=== PATIENT | female | born 1945 | race Caucasian/White ===

== ENCOUNTER 2016-08-22 12:40 | Inpatient (IN) | payer MEDICARE ==
--- NOTE | ~2016-08-22 | PREOPHP ---
PreOp History and Physical [address] [place]. [address] NAME: NICK STANLEY : 43 STATUS : DIS IN PAT#: [id number] AGE: 70 ADM/REG DATE : 08/22/16 MR#: [id number] REPORT SERV DATE: 09/13/16 DICTATED BY: ROSMERY BOB DATE: 09/13/16 REPORT STATUS : Draft TRANSCRIBED BY: MODL DATE: 09/13/16 CHIEF COMPLAINT: Right ureteral tumor. HISTORY OF PRESENT ILLNESS: Mrs. 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 This is due to right ureteral tumor on CT scan. The CT scan obtained due to hematuria. She has been counseled regarding her options. She is here for right-sided nephro-ureterectomy with paracaval lymph node dissection and intravesical instillation of mitomycin-C. PAST MEDICAL HISTORY: Ureteral tumor, hematuria, hypertension, hypercholesteremia, diabetes, and cataracts. PAST SURGICAL HISTORY: Appendectomy and cholecystectomy. FAMILY HISTORY: No genitourinary cancer. SOCIAL HISTORY: She does not smoke, drink, or use illegal drugs. ALLERGIES: TETRACYCLINE, PENICILLIN, AND SULFA. MEDICATIONS: Reviewed and on the chart. REVIEW OF SYSTEMS: A 12-point review of systems was performed. Pertinent positives listed in the HPI. PHYSICAL EXAMINATION: VITAL SIGNS: She is afebrile. Her vital signs are stable. GENERAL: She is in no acute distress. She appears her stated age. HEENT: Her head is normocephalic and atraumatic. LUNGS: Her breathing is nonlabored. She is not in respiratory distress. Pulse is regular in rate and rhythm. ABDOMEN: Soft, nontender, and nondistended. EXTREMITIES: There is no cyanosis or edema. NEUROLOGIC: She is alert and oriented x3. : Normal external genitalia. IMAGING: No new imaging. LABORATORY DATA: No new labs. ASSESSMENT: Malignant right ureteral tumor. PLAN: Surgery as detailed above. Risks and benefits were explained in detail. JKM/MODL PreOp History and Physical [address] [place]. [address] NAME: NICK STANLEY : 43 STATUS : DIS IN PAT#: [id number] AGE: 70 ADM/REG DATE : 08/22/16 MR#: [id number] REPORT SERV DATE: 09/13/16 DICTATED BY: ROSMERY BOB DATE: 09/13/16 REPORT STATUS : Draft TRANSCRIBED BY: GARY DATE: 09/13/16 Rosmery Bob MD / [id number] CC: MD Michael Banegas DO
--- NOTE | ~2016-08-22 | OP ---
Record Of Operation [facility] [address] [place]. [address] NAME: NICK STANLEY : 43 STATUS : ADM IN PAT#: [id number] AGE: 70 ADM/REG DATE : 08/22/16 MR#: [id number] REPORT SERV DATE: 08/23/16 DICTATED BY: ROSMERY BOB DATE: 08/23/16 REPORT STATUS : Draft TRANSCRIBED BY: MODL DATE: 08/23/16 DATE OF PROCEDURE: 08/22/2016 TITLE OF OPERATION: 1. Cystourethroscopy. 2. Instillation of intravesical mitomycin. 3. Right robotic nephroureterectomy. 4. Laparoscopic lysis of adhesions. 5. Paracaval retroperitoneal lymph node dissection. PREOPERATIVE DIAGNOSIS: Ureteral tumor. POSTOPERATIVE DIAGNOSIS: Ureteral tumor. INDICATIONS: Ms. Stanley is a 70-year-old female, with an incidentally found 4 cm right ureteral tumor with significant hydronephrosis. She is here for the above-mentioned procedures. ANESTHESIA: General. COMPLICATIONS: None. IMPLANTS: 16-Finnish Ruffin catheter. SPECIMEN: 1. Right kidney and ureter. 2. Paracaval lymph nodes. NARRATIVE: The patient was brought to the operating room, identified by her wristband. General anesthesia was induced and Ancef was given for preoperative antibiotics. She was initially placed in a frog-leg position and prepped and draped. A flexible cystoscope was placed into her urethra and into her bladder. The bladder was inspected. It was normal. There were no tumors. The scope was removed. A 16-Finnish Ruffin catheter was placed in standard fashion. The balloon was inflated with 10 mL of sterile water. 40 mg of mitomycin C in 40 mL of sterile water was slowly instilled into her catheter and the catheter was capped. The patient was then placed in the modified right flank position and secured to the bed with pads and tape. Her abdomen was insufflated to pressure of 15 mmHg using a Veress needle. A standard Xi port placement was performed with four 8 mm ports in the right side of the body in the midclavicular line. A 12 mm port was placed in the infraumbilical region and a 5 mm port was placed in the sub xiphoid position for a liver retractor. The abdomen was inspected. There was significant omental and large bowel adhesions given her prior cholecystectomy. Using a grasper and Endoshears, this was meticulously lysed off the anterior abdominal wall. This took about an hour to do. Once I had the adequate working space, the robot was docked. The final adhesions were taken down. Hemostasis was obtained. The adhesions between the liver and the kidney were sharply divided. The adhesions between the large bowel and the liver were sharply divided. Finally, the right colon was dropped Record Of Operation [facility] [id number] [facility] [place]. [address] NAME: NICK STANLEY : 43 STATUS : ADM IN PAT#: [id number] AGE: 70 ADM/REG DATE : 08/22/16 MR#: [id number] REPORT SERV DATE: 08/23/16 DICTATED BY: ROSMERY BOB DATE: 08/23/16 REPORT STATUS : Draft TRANSCRIBED BY: MODL DATE: 08/23/16 off the retroperitoneum along the white line of Toldt. This exposed the kidney. The colon was dropped medially to expose the duodenum, the duodenum was sharply Kocherized. The kidney was then observed. I then dissected the ureter out below the area of concern. The ureter was clipped. This was done to prevent further seeding of cancer cells. Next, I got beneath the kidney to expose the psoas muscle. All fibrofatty tissue above the vena cava was left on the specimen. Next, fibrofatty tissue overlying the renal hilum was divided. There was single renal artery and single renal vein. These were taken with separate 45 mm endo vascular staple loads. The adrenal gland was spared. The kidney was then freed from all attachments with electrocautery. The ureter was then dissected down into the pelvis robotically. The ureter was retracted cephalad until it was dissected into the bladder. Once, the bladder was clearly coming into view a 3-0 V-Loc suture was placed into the bladder. The ureter was then transected and removed. The cystotomy was closed with a 3-0 V Loc suture in a running fashion. The peritoneum was reapproximated over the bladder to extra-peritonealize this resection. The kidney and ureter were then placed into an EndoCatch bag. Next, fibrofatty tissue lateral and beneath the vena cava were taken with clips and cautery. Care was taken not to injure the vena cava or other venous structures. Sympathetic nerves were left undamaged. This dissection was carried from the bifurcation of the vena cava up to the renal hilum. It is not suspicious for cancer on gross examination. There was no ongoing bleeding. The abdomen was desufflated. A Surgiflo dressing was placed over the vena cava to help prevent chylous leak. The robot was undocked. A #10 round STEPHANIE drain was placed to the inferior most robotic port. The ports were removed sequentially. The supraumbilical incision was enlarged at the skin and fascia level. The kidney, lymph nodes, and the ureter were removed and sent to pathology for analysis. The fascia was closed with 0 Monocryl suture in a [id number] fashion. The subcutaneous tissues were closed with a 3-0 Vicryl suture in interrupted fashion. The skin was closed with 4-0 Monocryl suture in subcuticular fashion. A Dermabond dressing was placed. The TAP block was placed preoperatively. The patient was awoken from anesthesia and transferred to the recovery room in stable condition. There were no complications. NIKHIL/GARY Rosmery Bob MD / [id number] CC: Rosmery Bob MD
--- NOTE | ~2016-08-22 | DS ---
Discharge Summary [facility] [address] [place]. [address] NAME: NICK STANLEY : 43 STATUS : DIS IN PAT#: [id number] AGE: 70 ADM/REG DATE : 08/22/16 MR#: [id number] REPORT SERV DATE: 09/13/16 DICTATED BY: ROSMERY BOB DATE: 09/13/16 REPORT STATUS : Draft TRANSCRIBED BY: GARY DATE: 09/13/16 ADMISSION DATE: 08/22/2016 DISCHARGE DATE: 08/25/2016 DISCHARGE DIAGNOSIS: Right ureteral tumor. DISCHARGE PROCEDURES: 1. Cystoscopy. 2. Intravesical instillation of mitomycin. 3. Robotic right nephroureterectomy. 4. Robotic pericaval lymph node dissection. HOSPITAL COURSE: Ms. Stanley is a very pleasant female with a right ureteral tumor. On the day of admission, she underwent the above-mentioned operations. The procedure went well, and there were no complications. For full details, please see my operative note. Postoperatively, she was transferred to the recovery room and to the floor in stable condition. During her hospitalization, her diet was gradually advanced to a regular diet, which she was tolerating by the time of discharge. Prior to discharge, her Ruffin and drain, which were placed during the operation, were removed. On the day of discharge, she was ambulating. She had return of bowel function. She was doing well. She was discharged to home. DISCHARGE MEDICATIONS: Please see medicine reconciliation work sheet. DISCHARGE INSTRUCTIONS: Please see my preprinted discharge instructions. FOLLOWUP: Please follow up with me in two weeks. NIKHIL/GARY Rosmery Bob MD / [id number] CC: MD Michael Banegas DO
[~2016-08-22 12:40] MED LIST: ACTOPLUS M15 MG/500 PO; ALLEGRA180 PO; ASAB PO; CALTRA600D PO; CELEXA20 PO; GLUCOPHAGE1000 MG PO; GLUCXL5 PO; JANUVIA100 MG PO; LIPITOR20 PO; LOFIB160 PO; MULTIPLE VIT PO; PROBIOTIC PO; SINGULAIR1 PO; VASOTEC10 PO; ZETIA PO
[2016-08-22 18:32] LABS: BASOPHILS 0.5 %; BASOPHILS ABSOLUTE 0.05 10/3/uL (0.0-0.16); EOSINOPHILS 0.3 %; EOSINOPHILS ABSOLUTE 0.03 10/3/uL (0.0-0.53); HEMATOCRIT 35.8 % (36.0-48.0); HEMOGLOBIN 11.8 g/dL (12.0-16.0); IMMATURE GRANULOCYTES 0.3 %; IMMATURE GRANULOCYTES ABSOLUTE 0.03 10/3/uL (0.0-0.11); LYMPHOCYTES 9.7 %; LYMPHOCYTES ABSOLUTE 0.94 10/3/uL (0.67-4.30); MANUAL DIFF NO %; MEAN CORPUSCULAR HEMOGLOB 29.5 pg (26.0-34.0); MEAN CORPUSCULAR VOLUME 89.5 fL (80-100); MEAN PLATELET VOLUME 11.9 fL (9.2-13.0); MONOCYTES 2.7 %; MONOCYTES ABSOLUTE 0.26 10/3/uL (0.21-1.20); NEUTROPHILS 86.5 %; NEUTROPHILS ABSOLUTE 8.37 10/3/uL (2.02-8.40); PLATELET COUNT 215 10/3/uL (150-400); RBC DISTRIBUTION WIDTH 14.1 % (12.0-16.0); WHITE BLOOD CELLS 9.7 10/3/uL (4.5-10.5)
[2016-08-22 18:45] LABS: CHLORIDE, SERUM 109 MMOL/L (96-112); CO2 (CARBON DIOXIDE) 25 MMOL/L (24-34); CREATININE 1.02 MG/DL (0.55-1.02); GFR AFRICAN AMERICAN 64 ML/MIN (>=60); GFR NON AFRICAN AMERICAN 55 ML/MIN (>=60); SODIUM, SERUM 140 MMOL/L (135-148)
[2016-08-22 18:47] LABS: BUN (BLOOD UREA NITROGEN) 13 MG/DL (6-23); GLUCOSE, SERUM 177 MG/DL (60-99); POTASSIUM, SERUM 3.8 MMOL/L (3.5-5.3)
[2016-08-23 06:37] LABS: BASOPHILS 0.6 %; BASOPHILS ABSOLUTE 0.04 10/3/uL (0.0-0.16); EOSINOPHILS 0.3 %; EOSINOPHILS ABSOLUTE 0.02 10/3/uL (0.0-0.53); HEMATOCRIT 33.8 % (36.0-48.0); HEMOGLOBIN 11.4 g/dL (12.0-16.0); IMMATURE GRANULOCYTES 0.2 %; IMMATURE GRANULOCYTES ABSOLUTE 0.01 10/3/uL (0.0-0.11); LYMPHOCYTES 20.2 %; LYMPHOCYTES ABSOLUTE 1.26 10/3/uL (0.67-4.30); MEAN CORPUS HGB CONC 33.7 g/dL (32.0-36.0); MEAN CORPUSCULAR VOLUME 88.9 fL (80-100); MEAN PLATELET VOLUME 12.2 fL (9.2-13.0); MONOCYTES 6.9 %; MONOCYTES ABSOLUTE 0.43 10/3/uL (0.21-1.20); NEUTROPHILS 71.8 %; NEUTROPHILS ABSOLUTE 4.47 10/3/uL (2.02-8.40); PLATELET COUNT 203 10/3/uL (150-400); WHITE BLOOD CELLS 6.2 10/3/uL (4.5-10.5)
[2016-08-23 06:43] LABS: MANUAL DIFF NO %
[2016-08-23 06:48] LABS: BUN (BLOOD UREA NITROGEN) 10 MG/DL (6-23); CHLORIDE, SERUM 112 MMOL/L (96-112); CO2 (CARBON DIOXIDE) 25 MMOL/L (24-34); CREATININE 1.02 MG/DL (0.55-1.02); GFR AFRICAN AMERICAN 64 ML/MIN (>=60); GFR NON AFRICAN AMERICAN 55 ML/MIN (>=60); POTASSIUM, SERUM 3.6 MMOL/L (3.5-5.3); SODIUM, SERUM 142 MMOL/L (135-148)
[2016-08-23 06:49] LABS: GLUCOSE, SERUM 119 MG/DL (60-99)
[2016-08-25] MEDS ORDERED: PCET PO (08:05)
[2016-08-25] MEDS ORDERED: DSS PO (08:06)
== END 2016-08-25 12:04 | disposition home or self-care (01) | DRG 657 ==
LOC: SDC/OF 12:40 → 4SO 18:43
PROVIDERS: Urology
PROC: 0TT64ZZ Resection of Right Ureter, Percutaneous Endoscopic Approach (ICD-10-PCS; 2016-08-22)
PROC: 07BC4ZZ Excision of Pelvis Lymphatic, Percutaneous Endoscopic Approach (ICD-10-PCS; 2016-08-22)
PROC: 3E0M705 Introduction of Other Antineoplastic into Peritoneal Cavity, Via Natural or Artificial Opening (ICD-10-PCS; 2016-08-22)
PROC: 8E0W8CZ Robotic Assisted Procedure of Trunk Region, Via Natural or Artificial Opening Endoscopic (ICD-10-PCS; 2016-08-22)
PROC: 0TT04ZZ Resection of Right Kidney, Percutaneous Endoscopic Approach (ICD-10-PCS; principal; 2016-08-22 12:30)
DX: D49.59 Neoplasm of unspecified behavior of other genitourinary organ (principal); N13.30 Unspecified hydronephrosis; E11.9 Type 2 diabetes mellitus without complications; I10 Essential (primary) hypertension; F32.9 Major depressive disorder, single episode, unspecified; F17.210 Nicotine dependence, cigarettes, uncomplicated
CPT/HCPCS: 36415; 80048; 81001; 82570; 82962; 85014; 85018; 85025; 86850; 86900; 86901; 86920; 87077; 87086; 87186; 88307; 93005; A9270-GY; J0690; J2250; J2405; J2710; J2795; J3010; J9280